=== PATIENT | male | born 1985 ===

== ENCOUNTER 2018-06-04 21:36 | Emergency (ER) | payer BC ==
[2018-06-04 21:45] VITALS: TEMP 98.4
--- NOTE | 2018-06-04 22:59 | ED PDOC ---
HPI: Head Injury Time Seen by Provider: 06/04/18 21:53 Chief Complaint (Nursing): Dizziness/Lightheaded Chief Complaint (Provider): Head injury History Per: Patient History/Exam Limitations: no limitations Additional Complaint(s): Pt states he fell and hit side of head on ground @ 7:30 PM today while playing football, no LOC, had clear-pink fluid coming from both nostrils that resolved. Continued to play full game but now does not remember first half of game. Denies visual changes, OMALLEY, dizziness, nausea, vomiting. Past Medical History Reviewed: Nursing Documentation, Vital Signs Vital Signs: Last Vital Signs Temp 98.4 F 06/04/18 21:40 Pulse 60 06/04/18 21:40 Resp 17 06/04/18 21:40 BP 145/92 H 06/04/18 21:40 Pulse Ox 100 06/04/18 21:40 - Medical History PMH: No Chronic Diseases - Family History Family History: States: Unknown Family Hx - Social History Current smoker - smoking cessation education provided: No Alcohol: None - Allergies Allergies/Adverse Reactions: Allergies Allergy/AdvReac Type Severity Reaction Status Date / Time No Known Allergies Allergy Verified 06/05/18 21:36 Review of Systems Constitutional: Negative for: Fever, Chills Eyes: Negative for: Vision Change ENT: Positive for: Nose Discharge Cardiovascular: Negative for: Chest Pain Gastrointestinal: Negative for: Vomiting, Diarrhea Musculoskeletal: Negative for: Neck Pain Skin: Negative for: Rash, Lesions Neurological: Positive for: Other ( Memory loss). Negative for: Weakness, Numbness, Incoordination, Change in Speech, Confusion, Seizures, Altered Mental Status, Headache, Dizziness Physical Exam - Reviewed Nursing Documentation Reviewed: Yes Vital Signs Reviewed: Yes - Physical Exam Appears: Positive for: Well, No Acute Distress Head Exam: Positive for: ATRAUMATIC, NORMAL INSPECTION, NORMOCEPHALIC Skin: Positive for: Normal Color, Warm, Dry Eye Exam: Positive for: Normal appearance, EOMI, PERRL Neck: Positive for: Normal, Painless ROM, Supple. Negative for: Limited ROM, Pain On Movement Of Neck Cardiovascular/Chest: Positive for: Regular Rate, Rhythm Respiratory: Positive for: Normal Breath Sounds Extremity: Positive for: Normal ROM Neurologic/Psych: Positive for: Alert, building manager II-XII, Oriented. Negative for: Motor/Sensory Deficits, Aphasia, Facial Droop - ECG O2 Sat by Pulse Oximetry: 100 Medical Decision Making Medical Decision Makin yo male with head injury and memory loss. - CT head Accession No. : [id number] Patient Name / ID : BECKY Mendez / [id number] Exam Date : 06/04/2018 22:46:27 ( Approved ) Study Comment : Sex / Age : M / 32Y Creator : lesia beltran Dictator : Jl Buckley MD Books Salesperson : Wind Turbine Mechanic : Jl Buckley MD Approver2 : Report Date : 06/05/2018 04:40:29 My Comment : Date of service: 06/04/2018 PROCEDURE: CT HEAD WITHOUT CONTRAST. HISTORY: Head injury COMPARISON: None available. TECHNIQUE: Axial computed tomography images were obtained through the head/brain without intravenous contrast. Radiation dose: Total exam DLP = 824.22 mGy-cm. This CT exam was performed using one or more of the following dose reduction techniques: Automated exposure control, adjustment of the mA and/or kV according to patient size, and/or use of iterative reconstruction technique. FINDINGS: HEMORRHAGE: No intracranial hemorrhage. BRAIN: Normal miller-white matter differentiation and density are appreciated throughout the cerebrum and cerebellum with the brainstem appearing unremarkable as well. There is no mass effect. There is no suspicious extra-axial fluid collection and the midline brain anatomy appears diffusely unremarkable. VENTRICLES: Unremarkable. No hydrocephalus. CALVARIUM: No destructive bony lesion or displaced fracture identified including through the skullbase. PARANASAL SINUSES: Limited left maxillary sinusitis identified. MASTOID AIR CELLS: Unremarkable as visualized. No inflammatory changes. OTHER FINDINGS: None. IMPRESSION: Unremarkable noncontrast CT of the Head. Concordant preliminary report from [facility], 06/04/2018. Disposition - Clinical Impression Clinical Impression: Concussion, Head injury - Disposition Referrals: Massimo William MD [Medical Doctor] - Disposition: Routine/Home Disposition Time: 23:27 Condition: GOOD Instructions: Concussion in Adults, Closed Head Injury Forms: [facility] (Hebrew)
[2018-06-05 03:36] VITALS: BP 138/88; PULSE 64; RESP 16
--- NOTE | 2018-06-05 11:34 | CT ---
Date of service: 06/04/2018 PROCEDURE: CT HEAD WITHOUT CONTRAST. HISTORY: Head injury COMPARISON: None available. TECHNIQUE: Axial computed tomography images were obtained through the head/brain without intravenous contrast. Radiation dose: Total exam DLP = 824.22 mGy-cm. This CT exam was performed using one or more of the following dose reduction techniques: Automated exposure control, adjustment of the mA and/or kV according to patient size, and/or use of iterative reconstruction technique. FINDINGS: HEMORRHAGE: No intracranial hemorrhage. BRAIN: Normal miller-white matter differentiation and density are appreciated throughout the cerebrum and cerebellum with the brainstem appearing unremarkable as well. There is no mass effect. There is no suspicious extra-axial fluid collection and the midline brain anatomy appears diffusely unremarkable. VENTRICLES: Unremarkable. No hydrocephalus. CALVARIUM: No destructive bony lesion or displaced fracture identified including through the skullbase. PARANASAL SINUSES: Limited left maxillary sinusitis identified. MASTOID AIR CELLS: Unremarkable as visualized. No inflammatory changes. OTHER FINDINGS: None. IMPRESSION: Unremarkable noncontrast CT of the Head. Concordant preliminary report from [facility], 06/04/2018.
[2018-06-14 12:13] VITALS: O2SAT 100
== END 2018-06-04 23:40 | disposition home or self-care (01) ==
LOC: H.ER 21:36
DX: S06.0X0A Concussion without loss of consciousness, initial encounter (principal); W18.30XA Fall on same level, unspecified, initial encounter; Y93.61 Activity, american tackle football

== ENCOUNTER 2018-06-05 21:19 | Emergency (ER) | payer BC ==
[2018-06-05 21:43] VITALS: BP 120/72; PULSE 61; RESP 16; TEMP 98.3; O2SAT 98
--- NOTE | 2018-06-05 22:29 | ED PDOC ---
HPI: General Adult Time Seen by Provider: 06/05/18 21:54 Chief Complaint (Nursing): Headache Chief Complaint (Provider): blood-tingued mucous History Per: Patient History/Exam Limitations: no limitations Onset/Duration Of Symptoms: Days (1) Current Symptoms Are (Timing): Still Present Additional Complaint(s): 32 y/o male presents for evaluation of blood in mucous x 1 day. Patient states he sustained head injury yesterday during a football game; had pink fluid coming from both nostrils with associated memory loss and came to ED for eval and head a normal head CT. Patient states he woke up without any symptoms today but then started spitting up phlegm which had red blood in it; states first episode was more blood, then the next few had specks of blood mixed in, but the last episode had again more blood, which prompted ED visit. Denies headache, dizziness, nausea/vomiting, facial pain, nasal congestion, cough, chest pain, shortness of breath, palpitations, vomiting, abdominal pain, changes in bowel movements Past Medical History Reviewed: Historical Data, Nursing Documentation, Vital Signs Vital Signs: Last Vital Signs Temp 98.3 F 06/05/18 21:39 Pulse 61 06/05/18 21:39 Resp 16 06/05/18 21:39 BP 120/72 06/05/18 21:39 Pulse Ox 98 06/05/18 21:39 - Medical History PMH: No Chronic Diseases - Surgical History Surgical History: No Surg Hx - Family History Family History: States: Unknown Family Hx - Living Arrangements Living Arrangements: With Family - Allergies Allergies/Adverse Reactions: Allergies Allergy/AdvReac Type Severity Reaction Status Date / Time No Known Allergies Allergy Verified 06/05/18 21:36 Review of Systems ROS Statement: Except As Marked, All Systems Reviewed And Found Negative Respiratory: Positive for: Sputum Physical Exam - Reviewed Nursing Documentation Reviewed: Yes Vital Signs Reviewed: Yes - Physical Exam Appears: Positive for: Well, Non-toxic, No Acute Distress Head Exam: Positive for: ATRAUMATIC, NORMAL INSPECTION, NORMOCEPHALIC Skin: Positive for: Normal Color Eye Exam: Positive for: Normal appearance ENT: Positive for: Normal ENT Inspection Cardiovascular/Chest: Positive for: Regular Rate, Rhythm Respiratory: Positive for: Normal Breath Sounds Gastrointestinal/Abdominal: Positive for: Normal Exam Back: Positive for: Normal Inspection Extremity: Positive for: Normal ROM Neurologic/Psych: Positive for: Alert, Oriented (x3) - ECG O2 Sat by Pulse Oximetry: 98 - Radiology X-Ray: Viewed By Me X-Ray Interpretation: No Acute Disease - Progress ED Course And Treament: CXR Patient evaluated by ED attending Dr. Muro, agrees with plan to discharge and f/up with PMD within 2 days Return precautions given Patient demonstrates full understanding of discharge instructions Patient requires no further intervention in the ED and is stable for discharge at this time Disposition - Clinical Impression Clinical Impression: Hemoptysis - Patient ED Disposition Is Patient to be Admitted: No Counseled Patient/Family Regarding: Studies Performed, Diagnosis, Need For Followup - Disposition Disposition: Routine/Home Disposition Time: 23:18 Condition: IMPROVED Instructions: Coughing up Blood Forms: [facility] (Turkish)
--- NOTE | 2018-06-06 09:44 | RAD ---
Date of service: 06/05/2018 HISTORY: fall, blood-tinged mucous COMPARISON: No prior. TECHNIQUE: Chest PA and lateral FINDINGS: LUNGS: No active pulmonary disease. PLEURA: No significant pleural effusion identified. No pneumothorax apparent. CARDIOVASCULAR: Normal. OSSEOUS STRUCTURES: No significant abnormalities. VISUALIZED UPPER ABDOMEN: Normal. OTHER FINDINGS: None. IMPRESSION: No acute cardiopulmonary disease appreciated.
== END 2018-06-05 23:04 | disposition home or self-care (01) ==
LOC: H.ER 21:19
DX: R04.2 Hemoptysis (principal)